=== PATIENT | female | born 1955 | race Caucasian/White ===

== ENCOUNTER 2016-08-24 20:43 | Emergency (ER) | payer OTHER ==
[~2016-08-24] VITALS: Ht 160 cm; Wt 87.0 kg
[~2016-08-24 20:43] MED LIST: ALEVE220 M2 PO; ASPIR 8181 M1 PO; AUBAGIO14 MG PO; Aspirin E.C. PO; BACLOFEN10 MG; BACLOFEN10 MG PO; BACTRIM,SEPT1 TABLET PO; BAYER CHILDREN'81 MG PO; BUSPAR15 MG PO; Benadryl PO; Buspar PO; CHILD ASPIRIN81 M1 PO; CIPRODEX OTIC7.5 ML RIGHT EAR; CLONAZEPAM1 MG PO; DILANTIN100 MG PO; DOMPERIDONE PO; DOMPERIDONE1 GM MC; DOMPERIDONE1 GM PO; Dilantin PO; FAMCICLOVIR500 MG PO; FAMVIR500 MG PO; Flagyl PO; HYDROCHLOROTH12.5 M3 PO; KLONOPIN1 MG; KLONOPIN1 MG PO; KlonoPIN PO; LEVOTHYROXINE25 MCG PO; LIPITOR40 MG PO; LISINOPRIL40 MG PO; LO-DOSE ASPIRIN81 M2 PO; LOPRESSOR50 MG PO; LOW DOSE ASPIRI81 M2 PO; Lioresal PO; Lopressor PO; METOPROLOL TART50 MG PO; Motilium PO; NEXIUM40 MG PO; NORVASC5 MG PO; NUVIGIL150 MG PO; Norvasc PO; PHENYTOIN SODI100 MG PO; Phenytek PO; RANITIDINE HCL150 MG PO; REBIF44 MCG/0.5 SC; TYLENOL REGULA325 MG PO; Tylenol Extra Streng PO; VALIUM5 MG PO; VITAMIN D31000 UNIT PO; Valium PO; ZESTRIL,PRINIVIL5 MG PO; ZONEGRAN100 MG PO; ZYVOX600 MG PO; Zestril,Prinivil PO; Zonegran PO; Zyvox PO
[2016-08-24 22:20] LABS: HEMATOCRIT 27.5 % (36.0-46.0); MCH 29.6 PG (29.0-34.0); MCHC 32.7 G/DL (30.0-36.0); MCV 90.5 FL (83-99); MEAN PLAT.VOLUME 8.9 uM^3 (9.5-12.4); PLATELET COUNT 354 K/uL (156-360); RBC DIS.WIDTH-CV 13.6 % (11.8-14.6); RBC DIS.WIDTH-SD 45.1 % (39-53); RED BLOOD COUNT 3.04 M/uL (3.80-5.20); WHITE BLOOD COUNT 6.5 K/uL (4.1-10.2)
[2016-08-24 22:30] LABS: CHLORIDE 99 mEq/L (99-109); SODIUM 135 mEq/L (136-147)
[2016-08-24 22:33] LABS: GLUCOSE 102 mg/dL (70-99)
[2016-08-24 22:34] LABS: ANION GAP 12 MEQ/L (2-14)
[2016-08-24 22:35] LABS: TOTAL BILIRUBIN 0.3 mg/dL (0.0-1.0)
[2016-08-24 22:36] LABS: ALKALINE PHOSPHATASE 92 IU/L (3-129); GFR ESTIMATE (CALCULATED) > 59 mL/min/
[2016-08-24 22:37] LABS: UREA NITROGEN (BUN) 21 mg/dL (9-23)
[2016-08-24 22:40] LABS: LIPASE 31 U/L (1.0-51.0)
[2016-08-25] VITALS: BP 135/80
[2016-08-25] MEDS ORDERED: NORCO 5/3251 TABLET PO (00:51)
[2016-08-25 01:10] LABS: ADD MIUA? YES; BILIRUBIN NEGATIVE; BLOOD NEGATIVE; COLOR YELLOW ((YELLOW)); GLUCOSE (STRIP) NEGATIVE; KETONES NEGATIVE; LEUKOCYTES TRACE; NITRITE NEGATIVE; PROTEIN (STRIP) NEGATIVE; SPECIFIC GRAVITY 1.032 (1.000-1.030); UROBILINOGEN 0.2 MG/DL (0.2-1.0)
[2016-08-25] MEDS ORDERED: ZOFRAN4 MG PO (01:17)
[2016-08-25 01:41] LABS: BACTERIA NONE SEEN /HPF; EPITHELIAL CELLS 4+ /HPF; MUCUS TRACE /LPF; RED BLOOD CELLS 0-5 /HPF (0-5); UCUL ADDED? NO; WHITE BLOOD CELLS 0-5 /HPF (0-5)
== END 2016-08-25 01:34 | disposition home or self-care (01) ==
LOC: EME 20:43
PROVIDERS: Emergency Medicine
DX: R20.0 Anesthesia of skin (principal); R10.9 Unspecified abdominal pain; I10 Essential (primary) hypertension; G35 Multiple sclerosis; Z87.891 Personal history of nicotine dependence; I25.2 Old myocardial infarction; K21.9 Gastro-esophageal reflux disease without esophagitis; E78.5 Hyperlipidemia, unspecified
CPT/HCPCS: 72132; 74177; 80053; 81003; 83690; 85027; 93005; 99281; 99285; J2270; J2405; J7030

== ENCOUNTER → 2017-08-04 | Outpatient (CLI) | payer OTHER ==
[~2017-08-04] MED LIST changes: +NORCO 5/3251 TABLET PO; +ZOFRAN4 MG PO
== END | disposition home or self-care (01) ==
LOC: CDC 12:39
DX: Z01.810 Encounter for preprocedural cardiovascular examination (principal); I70.25 Atherosclerosis of native arteries of other extremities with ulceration; I45.4 Nonspecific intraventricular block
CPT/HCPCS: 93000

== ENCOUNTER → 2017-10-13 | Outpatient (CLI) | payer OTHER | END | disposition home or self-care (01) | LOC: CDC 12:46 | DX: Z01.810 Encounter for preprocedural cardiovascular examination (principal); I70.25 Atherosclerosis of native arteries of other extremities with ulceration | CPT/HCPCS: 93000 ==